=== PATIENT | female | born 1965 ===

== ENCOUNTER 2021-03-16 07:44 | Outpatient (CLI) | payer OTHER ==
[~2021-03-16 07:44] MED LIST: DYMISTA NASAL S23 GM NS; PROVENTIL0.5 ML/2.5 IH
== END 2021-03-16 13:43 | disposition home or self-care (01) ==
LOC: LAB 07:44
PROVIDERS: ATTEND Surgery
DX: R05 Cough (principal); R50.9 Fever, unspecified; Z03.818 Encounter for observation for suspected exposure to other biological agents ruled out